=== PATIENT | female | born 1950 | race Caucasian/White ===

== ENCOUNTER 2020-04-01 12:28 | Emergency (ER) | payer MEDICARE, OTHER ==
[2020-04-01 13:58] LABS: HEMOGLOBIN 13.6 gm/dl (12.3-15.3); RED BLOOD COUNT 4.74 M/UL (4.00-5.10); WHITE BLOOD COUNT 5.4 K/UL (4.5-11.0)
[2020-04-01 14:31] LABS: BUN/CREATININE RATIO 30 (0-10)
== END 2020-04-02 10:13 | disposition other institution (70) ==
LOC: ER1 12:28
PROVIDERS: Physician Assistant Medical
DX: T43.212A Poisoning by selective serotonin and norepinephrine reuptake inhibitors, intentional self-harm, initial encounter (principal); T43.592A Poisoning by other antipsychotics and neuroleptics, intentional self-harm, initial encounter; Z91.5 Personal history of self-harm; Z20.822 Contact with and (suspected) exposure to COVID-19
CPT/HCPCS: 71045; 80053; 80307; 81001; 82550; 82553; 83874; 84484; 85025; 93005; 99283; G0480; U0002

== ENCOUNTER → 2021-03-20 | Outpatient (CLI) | payer MEDICARE, OTHER | LOC: EMI 14:51 | DX: M43.06 Spondylolysis, lumbar region (principal); R10.30 Lower abdominal pain, unspecified; M51.36 Other intervertebral disc degeneration, lumbar region; M48.061 Spinal stenosis, lumbar region without neurogenic claudication; M51.26 Other intervertebral disc displacement, lumbar region | CPT/HCPCS: 72148 ==

== ENCOUNTER 2021-10-07 12:40 | Emergency (ER) | payer MEDICARE, OTHER ==
[2021-10-07 16:00] LABS: HEMOGLOBIN 13.8 gm/dl (12.3-15.3); RED BLOOD COUNT 4.71 M/UL (4.00-5.10); WHITE BLOOD COUNT 7.6 K/UL (4.5-11.0)
[2021-10-07] MEDS ORDERED: CYCLOBENZAPRINE10 MG PO (16:42)
[2021-10-07 16:43] LABS: BUN/CREATININE RATIO 30 (0-10)
== END 2021-10-07 17:10 | disposition home or self-care (01) ==
LOC: ER1 12:40
PROVIDERS: Physician Assistant
DX: N39.0 Urinary tract infection, site not specified (principal); M51.36 Other intervertebral disc degeneration, lumbar region; Z87.442 Personal history of urinary calculi; F17.210 Nicotine dependence, cigarettes, uncomplicated
CPT/HCPCS: 80053; 81001; 82550; 82553; 83605; 84484; 85025; 87040; 87086; 96374; 96375; 99284; J0696; J1170; J2270; J2405